=== PATIENT | male | born 1975 | race Hispanic/Latino ===

== ENCOUNTER 2020-10-18 07:39 | Emergency (ER) | payer OTHER ==
[~2020-10-18] VITALS: Ht 167.6 cm; Wt 72.1 kg
[2020-10-18] MEDS ORDERED: DEXAMETHASONE SOD PHOS 10 MG/1 ML VIAL IV STA (07:43)
[2020-10-18] MEDS ORDERED: ASPIRIN 81 MG CHEW TAB PO ONE (07:45)
[2020-10-18] MEDS ORDERED: AZITHROMYCIN 500MG/NS 250 ML 250 ML IV STA (07:55)
[2020-10-18 07:59] LABS: BASOPHILS % 0.1 % (0.0-1.0); HEMATOCRIT 43.6 % (38.2-49.6); HEMOGLOBIN 15.5 g/dL (14.0-18.0); LYMPHOCYTES # (AUTO) 0.8 (1.0-3.2); LYMPHOCYTES % 9.8 % (18.0-39.1); MEAN CORPUSCULAR HEMOGLOBIN 31.4 pg (28-32); MEAN CORPUSCULAR HGB CONC 35.6 g/dL (31-35); MEAN CORPUSCULAR VOLUME 88.3 fL (81-99); MONOCYTES # (AUTO) 0.2 (0.2-0.8); MONOCYTES % 3.1 % (4.4-11.3); NEUTROPHILS # (AUTO) 6.6 (2.1-6.9); NEUTROPHILS % 86.6 % (38.7-80.0); PLATELET COUNT 250 x10e3/uL (140-360); RED BLOOD COUNT 4.94 x10e6/uL (4.3-5.7); RED CELL DISTRIBUTION WIDTH 11.2 % (11.7-14.4)
[2020-10-18 08:23] LABS: ALANINE AMINOTRANSFERASE 128 IU/L (0-55); ALBUMIN 3.6 g/dL (3.5-5.0); ALBUMIN/GLOBULIN RATIO 0.9 (0.8-2.0); ALKALINE PHOSPHATASE 76 IU/L (40-150); ANION GAP 15.2 mmol/L (8-16); BLOOD UREA NITROGEN 13 mg/dL (7-26); BUN/CREATININE RATIO 14 (6-25); CALCIUM 8.8 mg/dL (8.4-10.2); CARBON DIOXIDE 23 mmol/L (22-29); CHLORIDE 101 mmol/L (98-107); CREATINE KINASE 1017 IU/L (30-200); CREATININE, SERUM 0.93 mg/dL (0.72-1.25); EST GLOMERULAR FILTRATION RATE > 60 ML/MIN (60-); GLUCOSE 174 mg/dL (74-118); POTASSIUM 4.2 mmol/L (3.5-5.1); SODIUM 135 mmol/L (136-145)
[2020-10-18 08:35] LABS: ABG HCO3 20 mmol/L (22-26); ABG PCO2 27 mmHg (35-45); ABG PH 7.47 (7.35-7.45); ABG PO2 78 mmHg (80-105); ABG TCO2 21
[2020-10-18] MEDS ORDERED: IOPAMIDOL 370 MG/ML 200 ML INFUS..BTL INJ ONE (08:53)
[2020-10-18] MEDS ORDERED: SODIUM CHLORIDE 0.9% 50ML 50 ML ONE (08:53)
[2020-10-18 12:19] VITALS: BP 136/87
== END 2020-10-18 12:49 | disposition other institution (70) ==
LOC: ER 07:46
DX: U07.1 COVID-19 (principal); R09.02 Hypoxemia
CPT/HCPCS: 36415; 36600; 71260; 80053; 82550; 82553; 82805; 83880; 84484; 85025; 93005; 99284; J0456; J1100; Q9967